=== PATIENT | male | born 1950 | race Caucasian/White ===

== ENCOUNTER 2017-03-10 09:22 | Inpatient (IN) | payer MEDICARE, OTHER ==
[~2017-03-10] VITALS: Ht 182.9 cm; Wt 96.0 kg
[2017-03-10] VITALS (34 sets, daily range): BP systolic 100–144; BP diastolic 49–88; PULSE 54–80; RESP 11–57; Ht 182.9 cm; Wt 96.0 kg
[2017-03-10] MEDS ORDERED: PROPOFOL 20 ML ONE ×2 (09:53→11:54)
[2017-03-10] MEDS ORDERED: METOCLOPRAMIDE 10 MG INJ ONE (09:53)
[2017-03-10] MEDS ORDERED: MIDAZOLAM 1 MG/ML 2 ML INJ ONE (09:53)
[2017-03-10] MEDS ORDERED: morphine SULFATE/PF (10 MG/10 ML) INJ ONE (09:54)
[2017-03-10] MEDS: BUPIVACAINE 0.5% (SDV) 30 ML, morphine SULFATE (PF) 8 MG, EPINEPHrine 0.3 MG, KETOROLAC... IRR SCH ×14 (10:30→12:46)
[2017-03-10] MEDS ORDERED: CEFAZOLIN 2 GM/50 ML (PMX) 50 ML IVPB ONE (10:30)
[2017-03-10] MEDS ORDERED: traMADol 50 MG TAB PO ONE (10:30)
[2017-03-10] MEDS ORDERED: DEXAMETHASONE 1 MG TAB PO ONE (10:30)
[2017-03-10] MEDS ORDERED: TRANEXAMIC ACID 1,000 MG in SOD CHLORIDE 0.9% 100 ML IVPB ONE (10:30)
[2017-03-10] MEDS ORDERED: GABAPENTIN 300 MG CAP PO ONE (10:30)
[2017-03-10] MEDS ORDERED: THYR130T5 PO (10:51)
--- NOTE | 2017-03-10 10:56 | HPN ---
Date/Time of Note Date/Time of Note DATE: 03/10/17 TIME: 10:56 Interval H&P Admission Note Pt. seen H&P reviewed: No system changes CATHY LEVINE MD Mar 10, 2017 10:56
[2017-03-10] MEDS ORDERED: THROMBIN 5000 UNIT VIAL ONE (11:11)
[2017-03-10] MEDS ORDERED: CA CHLORIDE 10% 10 ML SYRINGE ONE (11:11)
[2017-03-10] MEDS ORDERED: POLYMYXIN/BACITRACIN 1L IRRIG ONE (11:11)
[2017-03-10] MEDS ORDERED: CEFAZOLIN 1 GM INJ ONE (11:27)
[2017-03-10] MEDS ORDERED: SUCCINYLCHOLINE CHLORIDE 100 MG/5 ML SYG IV ONE (11:54)
[2017-03-10] MEDS ORDERED: TRANEXAMIC ACID 1,000 MG in SOD CHLORIDE 0.9% 100 ML IV ONE ×2 (12:32→14:00)
[2017-03-10] MEDS ORDERED: METOCLOPRAMIDE 10 MG INJ IV PRN (13:00)
[2017-03-10] MEDS ORDERED: DIPHENHYDRAMINE 50 MG INJ IV PRN ×2 (13:00→14:00)
[2017-03-10] MEDS ORDERED: hydrALAzine 20 MG INJ IV PRN (13:00)
[2017-03-10] MEDS ORDERED: LABETALOL HCL 20MG INJ IV PRN (13:00)
[2017-03-10] MEDS ORDERED: EPHEDrine SULFATE 50 MG/5 ML SYG IV PRN (13:00)
[2017-03-10] MEDS ORDERED: HYDROmorphONE (0.2 MG/ML) 10ML SYG IV PRN ×3 (13:00)
[2017-03-10] MEDS ORDERED: MEPERIDINE 25 MG INJ IV PRN (13:00)
[2017-03-10] MEDS ORDERED: ONDANSETRON 4 MG INJ IV PRN (13:00)
--- NOTE | 2017-03-10 13:45 | OPR ---
Date/Time of Note Date/Time of Note DATE: 03/10/17 TIME: 13:40 Operative Report Procedure Date: Mar 10, 2017 Preoperative Diagnosis Right hip primary arthritis Postoperative Diagnosis Right hip primary arthritis Operation Performed Right total hip arthroplasty Surgeon: CATHY LEVINE MD Bridge Painter: KATTY ROJAS MD Anesthesia: general, spinal Estimated Blood Loss: 200 - 250 ml's Complications: None Pt Condition Post Procedure: stable Disposition: PACU Operative\Procedure Findings Severe degenerative arthritis of both sides of the joint with a severe deformity of the femoral head. Procedure Description Following the administration of general endotracheal anesthesia supplemented with a spinal anesthetic, the patient was then placed in the supine position. The bilateral lower extremities were then prepped and draped in the usual sterile fashion. A lateral incision was then made exposing the tensor musculature. The tensor fascia was incised and the tensor retracted laterally. The anterior capsule was then identified and several bleeders were cauterized. A capsulectomy was then performed anteriorly and the femoral head was dislocated and incised in the appropriate degree of version and inclination. Severe arthritic changes were noted with very large peripheral osteophytes, several loose bodies and a significant deformity of the femoral head. The acetabulum was then visualized and prepared for reaming. Several peripheral osteophytes were removed. The acetabulum was then reamed up to the 59 mm size. Using confirmatory fluoroscopic imaging and computer guidance for the degree of inclination and version, a 60 mm Depuy [place] cup was then implanted with solid fixation. A 30 mm fixation screw was then used for additional fixation. A standard liner was then implanted with solid fixation. Attention was then directed to the radiograph. The position appeared to be 45 of abduction and 22 of anteversion which was appropriate. Attention was then directed to the femoral side the femoral canal was then entered and prepared for a 12 mm Corail stem. Radiographic confirmation revealed good position of the component with good filling of the canal. Limb lengths were essentially equal to the preoperative radiographs. The wound was thoroughly irrigated. The lateral fascia was closed in a running fashion. The skin was closed using running stitches as well as a Prenio watertight dressing for the final cover. Estimated blood loss for the procedure was 300 cc. Postoperative radiographs and CBC will be obtained. CATHY LEVINE MD Mar 10, 2017 13:45
--- NOTE | 2017-03-10 13:46 | PDOCDIS ---
Discharge Instructions DIAGNOSIS Discharge Diagnosis Hip arthritis CONDITION Patient Condition: Good HOME CARE INSTRUCTIONS: Diet Instructions: Regular ACTIVITY: Activity Restrictions: Slowly Increase Activity Keep Limb Elevated Bathing Restrictions: Shower FOLLOW UP/APPOINTMENTS Follow-up Plan 2 weeks SCHOOL/WORK RELEASE May return to School/Work with: With Restrictions School/Work Release Comment: No hip extension for 6 weeks. CATHY LEVINE MD Mar 10, 2017 13:46
[2017-03-10] MEDS ORDERED: KETOROLAC 15 MG INJ IV PRN (14:00)
[2017-03-10] MEDS ORDERED: BETHANECHOL 25 MG TAB PO PRN (14:00)
[2017-03-10] MEDS ORDERED: OXYCODONE/ACETAMINOPHEN (5/325) TAB PO PRN ×2 (14:00)
[2017-03-10] MEDS ORDERED: MAGNESIUM HYDROXIDE 30ML CUP PO PRN (14:00)
[2017-03-10] MEDS ORDERED: morphine 2 MG INJ IV PRN (14:00)
[2017-03-10] MEDS ORDERED: ACETAMINOPHEN 500 MG TAB PO PRN (14:00)
[2017-03-10] MEDS ORDERED: morphine 4 MG/ML VIAL IV PRN (14:00)
[2017-03-10] MEDS ORDERED: ZOLPIDEM 5 MG TAB PO PRN (14:00)
[2017-03-10] MEDS: CEFAZOLIN 1 GM/50 ML (PMX) 50 ML IVPB SCH ×2 (14:30→21:14)
--- NOTE | 2017-03-10 14:53 | RADRPT ---
PROCEDURE: XR Pelvis CLINICAL INDICATION: Status post total hip replacement TECHNIQUE: An AP radiograph was submitted. COMPARISON: None FINDINGS: Osseous structures: A well seated total right hip replacement is evident. The osseous elements othe rwise appear intact. Joint spaces: The left hip appears unremarkable. the sacroiliac joints appear unremarkable without significant erosions or sclerosis. Soft tissues: A Patton catheter is seen in the in place. Phleboliths are seen in the pelvis. IMPRESSION: 1. Well seated total right hip replacement. 2. A Patton catheter is in place. Physician Ant Date Time Electronically viewed and signed by Physician Ant on 03/10/2017 14:53 /
--- NOTE | 2017-03-10 14:56 | RADRPT ---
PROCEDURE: RF intraoperative images of right hip CLINICAL INDICATION: Right hip arthroplasty TECHNIQUE: 5 x-ray images were obtained intraoperatively during a right hip arthroplasty procedure . COMPARISON: None available FINDINGS: 5 x-ray images were obtained intraoperatively for localization during a total right hip replacement. 8.4 minutes of fluoroscopy time was utilized by Dr. Claire during the procedure. IMPRESSION: Xray images obtained intraoperatively for localization during a total right hip replacement. Physician Ant Date Time Electronically viewed and signed by Alli Dennison Physician on 03/10/2017 14:55 RH/
[2017-03-10 15:06] LABS: ADD SCAN DIFF NO
[2017-03-10 15:07] LABS: BASOPHIL # 0.1 10^3/ul (0.0-0.1); BASOPHILS % 0.3 % (0.0-2.0); EOSINOPHILS % 0.1 % (0.0-7.0); HEMATOCRIT 39.6 % (42.0-52.0); HEMOGLOBIN 13.8 g/dl (14.0-18.0); LYMPHOCYTES # 1.2 10^3/ul (0.8-2.9); LYMPHOCYTES % 5.7 % (15.0-51.0); MEAN CORPUSCULAR HEMOGLOBIN 31.5 pg (29.0-33.0); MEAN CORPUSCULAR HGB CONC 34.8 g/dl (32.0-37.0); MEAN CORPUSCULAR VOLUME 90.4 fl (82.0-101.0); MEAN PLATELET VOLUME 9.7 fl (7.4-10.4); MONOCYTE # 0.4 10^3/ul (0.3-0.9); NEUTROPHIL # 19.2 10^3/ul (1.6-7.5); NEUTROPHILS % 90.5 % (39.0-77.0); PLATELET COUNT 245 10^3/UL (140-415); RED BLOOD COUNT 4.38 10^6/ul (4.70-6.10); RED CELL DISTRIBUTION WIDTH 12.1 % (11.5-14.5); WHITE BLOOD COUNT 21.3 10^3/ul (4.8-10.8)
[2017-03-10] MEDS: DEXAMETHASONE 2 MG TAB PO SCH (17:13)
[2017-03-10] MEDS: LACTATED RINGER'S 1,000 ML IV SCH ×2 (18:28→23:23)
[2017-03-10] MEDS: ONDANSETRON 4 MG INJ IV PRN ×2 (18:35→22:13)
[2017-03-10] MEDS ORDERED: GABAPENTIN 300 MG CAP PO SCH (21:00)
[2017-03-10] MEDS: SENNA/DOCUSATE NA (8.6MG/50MG) TAB PO SCH (21:14)
[2017-03-11] MEDS: DEXAMETHASONE 2 MG TAB PO SCH ×3 (00:09→12:38)
[2017-03-11 00:20] VITALS: BP 110/55; RESP 18
[2017-03-11] MEDS: LACTATED RINGER'S 1,000 ML IV SCH (02:00)
[2017-03-11 05:01] LABS: ADD SCAN DIFF NO
[2017-03-11 05:12] LABS: BASOPHILS % 0.1 % (0.0-2.0); HEMATOCRIT 34.5 % (42.0-52.0); LYMPHOCYTES # 0.8 10^3/ul (0.8-2.9); LYMPHOCYTES % 5.2 % (15.0-51.0); MEAN CORPUSCULAR HEMOGLOBIN 31.1 pg (29.0-33.0); MEAN CORPUSCULAR HGB CONC 34.8 g/dl (32.0-37.0); MEAN CORPUSCULAR VOLUME 89.4 fl (82.0-101.0); MEAN PLATELET VOLUME 10.1 fl (7.4-10.4); MONOCYTE # 0.6 10^3/ul (0.3-0.9); MONOCYTES % 3.6 % (0.0-11.0); NEUTROPHILS % 90.4 % (39.0-77.0); PLATELET COUNT 213 10^3/UL (140-415); RED BLOOD COUNT 3.86 10^6/ul (4.70-6.10); WHITE BLOOD COUNT 15.5 10^3/ul (4.8-10.8)
[2017-03-11] MEDS: CEFAZOLIN 1 GM/50 ML (PMX) 50 ML IVPB SCH (05:29)
--- NOTE | 2017-03-11 06:38 | PN ---
Date/Time of Note Date/Time of Note DATE: 03/11/17 TIME: 06:37 24 hour Interval Summary Patient is awake and alert with no pain. Physical Exam Physical examination of his right lower extremity reveals that he is neurologically intact. His wound is clean and dry. There is minimal tenderness. There are no signs of DVT. Vital Signs Date Time Temp Pulse Resp B/P Pulse Ox O2 Delivery O2 Flow Rate FiO2 03/11/17 00:20 97.7 70 18 110/55 96 03/10/17 19:30 Room Air Intake and Output 03/10/17 03/10/17 03/11/17 15:00 23:00 07:00 Intake Total 2000 ml 790 ml 2150 ml Output Total 250 ml 450 ml 1150 ml Balance 1750 ml 340 ml 1000 ml VTE Prophylaxis VTE Prophylaxis Intervention: anti-embolic stocking Lines/Catheters IV Catheter Type: Saline Lock Patton in Place: No Results Result Diagram: 03/11/17 0434 Results 24hrs Laboratory Tests Test 03/10/17 14:55 03/11/17 04:34 White Blood Count 21.3 H 15.5 #H Red Blood Count 4.38 L 3.86 L Hemoglobin 13.8 L 12.0 L Hematocrit 39.6 L 34.5 L Mean Corpuscular Volume 90.4 89.4 Mean Corpuscular Hemoglobin 31.5 31.1 Mean Corpuscular Hemoglobin Concent 34.8 34.8 Red Cell Distribution Width 12.1 12.0 Platelet Count 245 213 Mean Platelet Volume 9.7 10.1 Neutrophils % 90.5 H 90.4 H Lymphocytes % 5.7 L 5.2 L Monocytes % 2.0 3.6 Eosinophils % 0.1 0.0 Basophils % 0.3 0.1 Nucleated Red Blood Cells % 0.0 0.0 Neutrophils # 19.2 H 14.0 H Lymphocytes # 1.2 0.8 Monocytes # 0.4 0.6 Eosinophils # 0.0 0.0 Basophils # 0.1 0.0 Nucleated Red Blood Cells # 0.0 0.0 Assessment/Plan Assessment/Plan Assessment: The patient will begin physical therapy this morning. He will be cleared for discharge once physical therapy sees that he is independently ambulatory. He will follow-up in the office in 2 weeks. Medications Medications Home Meds Reported Medications Thyroid,Pork (Nature-Throid) 130 Mg Tablet, 130 MG PO DAILY, TAB 03/10/17 CATHY LEVINE MD Mar 11, 2017 06:38
--- NOTE | 2017-03-11 06:40 | DS ---
Date/Time of Note Date/Time of Note DATE: 03/11/17 TIME: 06:39 Discharge Summary Admission/Discharge Info Admit Date/Time Mar 10, 2017 at 10:22 Discharge Date/Time March 11, 2017 following clearance by physical therapy Discharge Diagnosis Primary hip arthritis Patient Condition: Good Procedures Right total hip replacement Hx of Present Illness Pain and stiffness in the right hip that had been worsening over the last 6 months. Hospital Course Patient was admitted and taken to surgery. He underwent an uncomplicated total hip replacement. He is to be discharged to be followed up in the office in 2 weeks. Home Meds Reported Medications Thyroid,Pork (Nature-Throid) 130 Mg Tablet, 130 MG PO DAILY, TAB 03/10/17 Primary Care Provider Not On Staff Doctor Pending Labs Laboratory Tests Test 03/10/17 14:55 03/11/17 04:34 White Blood Count 21.310^3/ul (4.8-10.8) 15.510^3/ul (4.8-10.8) Red Blood Count 4.3810^6/ul (4.70-6.10) 3.8610^6/ul (4.70-6.10) Hemoglobin 13.8g/dl (14.0-18.0) 12.0g/dl (14.0-18.0) Hematocrit 39.6% (42.0-52.0) 34.5% (42.0-52.0) Mean Corpuscular Volume 90.4fl (82.0-101.0) 89.4fl (82.0-101.0) Mean Corpuscular Hemoglobin 31.5pg (29.0-33.0) 31.1pg (29.0-33.0) Mean Corpuscular Hemoglobin Concent 34.8g/dl (32.0-37.0) 34.8g/dl (32.0-37.0) Red Cell Distribution Width 12.1% (11.5-14.5) 12.0% (11.5-14.5) Platelet Count 62571^3/UL (140-415) 74854^3/UL (140-415) Mean Platelet Volume 9.7fl (7.4-10.4) 10.1fl (7.4-10.4) Neutrophils % 90.5% (39.0-77.0) 90.4% (39.0-77.0) Lymphocytes % 5.7% (15.0-51.0) 5.2% (15.0-51.0) Monocytes % 2.0% (0.0-11.0) 3.6% (0.0-11.0) Eosinophils % 0.1% (0.0-7.0) 0.0% (0.0-7.0) Basophils % 0.3% (0.0-2.0) 0.1% (0.0-2.0) Nucleated Red Blood Cells % 0.0/100WBC (0.0-0.0) 0.0/100WBC (0.0-0.0) Neutrophils # 19.210^3/ul (1.6-7.5) 14.010^3/ul (1.6-7.5) Lymphocytes # 1.210^3/ul (0.8-2.9) 0.810^3/ul (0.8-2.9) Monocytes # 0.410^3/ul (0.3-0.9) 0.610^3/ul (0.3-0.9) Eosinophils # 0.010^3/ul (0.0-0.5) 0.010^3/ul (0.0-0.5) Basophils # 0.110^3/ul (0.0-0.1) 0.010^3/ul (0.0-0.1) Nucleated Red Blood Cells # 0.010^3/ul (0.0-0.0) 0.010^3/ul (0.0-0.0) CATHY LEVINE MD Mar 11, 2017 06:40
[2017-03-11] MEDS: SENNA/DOCUSATE NA (8.6MG/50MG) TAB PO SCH (08:42)
[2017-03-11 08:56] VITALS: BP 125/55; RESP 18
[2017-03-11] MEDS ORDERED: THYROID 60 MG TAB PO SCH (09:00)
[2017-03-11] MEDS ORDERED: ASPIRIN (EC) 325 MG TAB PO SCH (09:00)
--- NOTE | 2017-03-11 09:28 | PN ---
Date/Time of Note Date/Time of Note DATE: 03/11/17 TIME: 09:22 Assessment/Plan VTE Prophylaxis VTE Prophylaxis Intervention: ambulation Lines/Catheters IV Catheter Type (from Nrsg): Saline Lock Urinary Cath still in place: No Subjective 24 Hr Interval Summary Free Text/Dictation Anesthesia Note: A 66 year male s/p KAREN with duramorph is ding well, no pain, headache, n/v, back pain, or itiching. he is about to ambulate. back is clean. care per surgery Exam/Review of Systems Vital Signs Vitals Vital Signs Date Time Temp Pulse Resp B/P Pulse Ox O2 Delivery O2 Flow Rate FiO2 03/11/17 08:56 97.8 81 18 125/55 97 03/10/17 19:30 Room Air Intake and Output 03/10/17 03/10/17 03/11/17 15:00 23:00 07:00 Intake Total 2000 ml 790 ml 2150 ml Output Total 250 ml 450 ml 1150 ml Balance 1750 ml 340 ml 1000 ml Results Result Diagram: 03/11/17 0434 Results 24 hrs Laboratory Tests Test 03/10/17 14:55 03/11/17 04:34 White Blood Count 21.3 H 15.5 #H Red Blood Count 4.38 L 3.86 L Hemoglobin 13.8 L 12.0 L Hematocrit 39.6 L 34.5 L Mean Corpuscular Volume 90.4 89.4 Mean Corpuscular Hemoglobin 31.5 31.1 Mean Corpuscular Hemoglobin Concent 34.8 34.8 Red Cell Distribution Width 12.1 12.0 Platelet Count 245 213 Mean Platelet Volume 9.7 10.1 Neutrophils % 90.5 H 90.4 H Lymphocytes % 5.7 L 5.2 L Monocytes % 2.0 3.6 Eosinophils % 0.1 0.0 Basophils % 0.3 0.1 Nucleated Red Blood Cells % 0.0 0.0 Neutrophils # 19.2 H 14.0 H Lymphocytes # 1.2 0.8 Monocytes # 0.4 0.6 Eosinophils # 0.0 0.0 Basophils # 0.1 0.0 Nucleated Red Blood Cells # 0.0 0.0 Medications Medications Current Medications Thyroid (Floris Thyroid) 120 mg DAILY PO ; Start 03/11/17 at 09:00 Senna/Docusate Sodium (Senokot-S) 1 tab BID PO Last administered on 03/11/17 08 :42; Admin Dose 1 TAB; Start 03/10/17 at 21:00 Simethicone (Mylicon) 80 mg TID PRN PO DISTENSION/GAS/BLOATING; Start 03/10/17 at 14:00 Magnesium Hydroxide (Milk Of Mag) 30 ml BID PRN PO CONSTIPATION; Start 03/10/17 at 14:00 Acetaminophen (Tylenol Tab) 1,000 mg Q4H PRN PO TEMP GREATER THAN 100.4F; Start 03/10/17 at 14:00 Dexamethasone (Decadron) 2 mg Q6 PO Last administered on 03/11/17 05:29; Admin Dose 2 MG; Start 03/10/17 at 18:00; Stop 03/11/17 at 12:01 Gabapentin (Neurontin) 300 mg HS PO Last administered on 03/10/17 21:14; Admin Dose 300 MG; Start 03/10/17 at 21:00 Oxycodone/ Acetaminophen (Percocet (5/ 325)) 1 tab Q4H PRN PO PAIN LEVEL 1-5; Start 03/10/17 at 14:00 Oxycodone/ Acetaminophen (Percocet (5/ 325)) 2 tab Q4H PRN PO PAIN LEVEL 6-10 Last administered on 03/11/17 08:52; Admin Dose 2 TAB; Start 03/10/17 at 14:00 Morphine Sulfate (morphine) 2 mg Q2H PRN IV PAIN LEVEL 1-5; Start 03/10/17 at 14 :00 Morphine Sulfate (morphine) 4 mg Q4H PRN IV PAIN LEVEL 6-10; Start 03/10/17 at 14:00 Ketorolac Tromethamine (Toradol) 15 mg Q6H PRN IV PAIN; Start 03/10/17 at 14:00 ; Stop 03/13/17 at 13:59 Ondansetron HCl (Zofran Inj) 4 mg Q6H PRN IV NAUSEA AND/OR VOMITING Last administered on 03/10/17 22:13; Admin Dose 4 MG; Start 03/10/17 at 14:00 Diphenhydramine HCl (Benadryl) 25 mg Q6H PRN IV PRURITUS; Start 03/10/17 at 14: 00 Aspirin 325 mg 325 mg BID PO Last administered on 03/11/17 08:42; Admin Dose 325 MG; Start 03/11/17 at 09:00 Lactated Ringer's (Lr) 1,000 ml @ 100 mls/hr Q10H IV Last administered on 02:00; Admin Dose 100 MLS/HR; Start 03/10/17 at 13:36 JAMES CALI MD Mar 11, 2017 09:27
== END 2017-03-11 15:50 | disposition home or self-care (01) | DRG 470 ==
LOC: REC 10:22 → MS1 17:45
PROVIDERS: ADMIT Orthopaedic Surgery; ATTEND Orthopaedic Surgery
PROC: 0SR904A Replacement of Right Hip Joint with Ceramic on Polyethylene Synthetic Substitute, Uncemented, Open Approach (ICD-10-PCS; principal; 2017-03-10 12:30)
DX: M16.11 Unilateral primary osteoarthritis, right hip (principal)
CPT/HCPCS: 72170; 73530; 85025; 87086; 97116; 97163; 97530; C1713; C1776; J0171; J0690; J0735; J1885; J2250; J2274; J2405; J2765; J3370; J7120; J7999